=== PATIENT | male | born 1990 | race Caucasian/White ===

== ENCOUNTER 2024-03-19 18:14 | Emergency (ER) | payer SELFPAY ==
[~2024-03-19] VITALS: Ht 190.5 cm; Wt 68.0 kg
[2024-03-19] MEDS ORDERED: Motrin,Rufen800 MG PO (18:48)
[2024-03-19] MEDS ORDERED: PENICILLIN VK500 MG PO (18:48)
[2024-03-19] MEDS ORDERED: BENZOCAINE 20% 11.9 GM GEL T STA (18:51)
[2024-03-19] MEDS ORDERED: Lidocaine Hydrochloride 15 ML UDC PO STA (18:51)
[2024-03-19] MEDS ORDERED: PENICILLIN V POTASSIUM 500 MG TAB PO ONE (18:55)
[2024-03-19] MEDS ORDERED: ACETAMINOPHEN 325 MG TAB PO ONE (18:55)
[2024-03-19] MEDS ORDERED: Ketorolac Tromethamine 60 MG/2 ML VIAL IM ONE (18:55)
== END 2024-03-19 19:17 | disposition home or self-care (01) ==
LOC: ED 18:14
DX: K08.89 Other specified disorders of teeth and supporting structures (principal)